=== PATIENT | female | born 1955 | race Caucasian/White ===

== ENCOUNTER → 2018-06-23 | Outpatient (CLI) | payer MEDICARE ==
[~2018-06-23] MED LIST: ASPIRIN81 MG PO; CALCIUM 600 +1 EAC2 PO; CRESTOR10 MG PO; GLIMEPIRIDE1 MG PO; METAMUCIL FIBE1 EACH PO; METFORMIN HCL500 MG PO; VASOTEC10 MG PO; VITAMIN D31000 UNI2 PO
--- NOTE | 2018-07-13 08:51 | Diagnostic Imaging Report ---
#[id number] - [id number] #BILATERAL DIGITAL SCREENING MAMMOGRAM WITH CAD: 06/23/2018 CLINICAL: Routine screening. Comparison is made to exams dated: 08/20/2017 mammogram, 08/19/2016 mammogram, 08/14/2016 mammogram and 08/13/2015 mammogram - [facility]. Current study contains 4 films. The tissue of both breasts is heterogeneously dense. This may lower the sensitivity of mammography. Current study was also evaluated with a Computer Aided Detection (CAD) system. There are benign calcifications in both breasts. There also is a benign nodule in the left breast. Additionally there is a biopsy clip in the left breast. No significant masses, calcifications, or other findings are seen in either breast. There has been no significant interval change. IMPRESSION: BENIGN There is no mammographic evidence of malignancy. A 1 year screening mammogram is recommended. The patient will be notified by letter of the results. Ta arroyo/[email or web address]:07/12/2018 09:37:04 [employer]age Machine Operator: Susan MURRY(R)(M), [facility] letter sent: Compared to Prior B9 Mammogram BI-RADS: 2 Benign
== END ==
LOC: MAMMO 10:13
DX: Z12.31 Encounter for screening mammogram for malignant neoplasm of breast (principal)
CPT/HCPCS: 77067